=== PATIENT | female | born 1945 | race Caucasian/White ===

== ENCOUNTER → 2024-06-15 14:48 | Outpatient (CLI) | payer MEDICARE, OTHER, SELFPAY ==
--- NOTE | 2024-06-15 | DI.RAD.S_ITS ---
PROCEDURE: XR CHEST 2V INDICATIONS: dyspnea on exertion TECHNIQUE: 2 views of the chest were acquired. COMPARISON: None. FINDINGS: Surgical changes and devices: None. Lungs and pleura: Elevated right hemidiaphragm. Large hiatal hernia. Mediastinum: Mediastinal contours are normal. Heart size is normal. Bones and chest wall: No suspicious bony abnormalities. Soft tissues appear unremarkable. IMPRESSION: Elevated right hemidiaphragm associated with basilar atelectasis and or infiltrate. Approved by: Renny Christie M.D. on 06/15/2024 at 19:00
[2024-06-15 15:29] LABS: Hematocrit 43.1 % (36-46); Hemoglobin 14.5 g/dL (12.0-16.0); Mean Corpuscular HGB Conc 33.6 % (30-36); Mean Corpuscular Hemoglobin 32.1 PG (26-34); Mean Corpuscular Volume 95.7 fL (80-100); Platelet Count 222 X10^3/uL (150-400); Red Cell Distribution Width 13.4 % (11.6-14.8); White Blood Cell Count 7.1 X10^3/uL (4.5-11.0)
[2024-06-15 15:51] LABS: Alanine Aminotransferase 19 IU/L (<35); Albumin 4.3 g/dL (3.5-5.0); Albumin Globulin Ratio 1.3 (1.0-2.8); Alkaline Phosphatase 99 U/L (38-126); Aspartate Aminotransferase 32 IU/L (14-36); Bilirubin Total 0.5 mg/dL (0.2-1.3); Blood Urea Nitrogen 11 mg/dL (7-17); Calcium 9.8 mg/dL (8.4-10.2); Carbon Dioxide 29 mmol/L (22-32); Chloride 103 mmol/L (98-107); Estimated Glomerular Filt Rate > 60 mL/min (>60); Globulin 3.4 g/dL (1.7-4.1); Glucose 104 mg/dL (80-110); HEMOLYSIS < 15 (0-50); Potassium 4.2 mmol/L (3.4-5.1); Sodium 139 mmol/L (137-145); Total Protein 7.7 g/dL (6.3-8.2)
[2024-06-15 15:59] LABS: NT-proBNP (BNP-Adult 18+) 2270 pg/mL (<450)
[2024-06-15 16:21] LABS: Thyroid Stimulating Hormone 2.57 uIU/mL (0.47-4.68)
== END ==
LOC: LAB 14:55
PROVIDERS: PCP Physician Assistant Medical; Referring Provider Nurse Practitioner; Visit Provider Nurse Practitioner
DX: R60.0 Localized edema (principal); R06.09 Other forms of dyspnea; J98.11 Atelectasis
CPT/HCPCS: 36415; 71046; 80053; 83880; 84443; 85027